=== PATIENT | male | born 1950 | race African-American/Black ===

== ENCOUNTER 2024-08-08 21:26 | Emergency (ER) | payer OTHER ==
[2024-08-08 21:48] VITALS: BP 162/94; PULSE 88; RESP 19; TEMP 97.8; BMI 25.0
== END 2024-08-08 22:15 | disposition home or self-care (01) ==
LOC: FER 21:26
DX: R68.84 Jaw pain (principal); K13.79 Other lesions of oral mucosa
CPT/HCPCS: 99283-25